=== PATIENT | female | born 2005 | race Caucasian/White ===

== ENCOUNTER 2025-03-31 08:20 | Emergency (ER) | payer SELFPAY ==
[~2025-03-31] VITALS: Ht 157.5 cm; Wt 72.6 kg
[2025-03-31 10:52] VITALS: BP 149/80; TEMP 98.6; O2SAT 99
== END 2025-03-31 10:52 | disposition home or self-care (01) ==
LOC: ER 08:24
DX: F10.129 Alcohol abuse with intoxication, unspecified (principal); Y90.9 Presence of alcohol in blood, level not specified